=== PATIENT | female | born 2000 | race Caucasian/White ===

== ENCOUNTER 2024-09-03 14:50 | Outpatient (CLI) | payer OTHER, MEDICAID, SELFPAY ==
--- NOTE | ~2024-09-03 | US_ITS ---
Pelvic ultrasound. Clinical History: Abnormal menstrual periods Technique: Realtime transabdominal scanning of the pelvis was performed. Color flow Doppler and Doppl er spectral analysis were performed. Findings: The uterus is anteverted. The endometrial stripe has a thickness of 16 mm. No focal mass i s identified. The right ovary measures 3.9 x 1.9 x 2.8 cm. No significant right ovarian or adnexal mass is seen. The left ovary measures 2.7 x 1.7 x 2.5 cm. No significant left ovarian or adnexal mass is seen. There is no evidence of free fluid in the cul de sac. Impression: Unremarkable pelvic ultrasound. Reviewed, dictated and finalized at location M. Impression: Unremarkable pelvic ultrasound.
== END 2024-09-03 14:51 | disposition home or self-care (01) ==
PROVIDERS: PCP Registered Nurse; Visit Provider Registered Nurse
DX: N92.6 Irregular menstruation, unspecified (principal)
CPT/HCPCS: 76856